=== PATIENT | male | born 1955 | race Caucasian/White ===

== ENCOUNTER 2018-12-14 11:28 | Emergency (ER) | payer SELFPAY ==
[~2018-12-14] VITALS: Ht 175.3 cm; Wt 70.0 kg
[2018-12-14 11:33] VITALS: BP 123/56
== END 2018-12-14 12:27 | disposition home or self-care (01) ==
LOC: ER 11:28
DX: Z48.00 Encounter for change or removal of nonsurgical wound dressing (principal); L02.31 Cutaneous abscess of buttock
CPT/HCPCS: 99283